=== PATIENT | female | born 1935 ===

== ENCOUNTER → 2019-05-19 | Outpatient (CLI) | payer MEDICARE, OTHER | LOC: ZCOL.LAB 16:05 | DX: L08.0 Pyoderma (principal) ==

== ENCOUNTER 2021-01-24 09:21 | Day surgery (SDC) | payer MEDICARE, OTHER ==
[2021-01-24] VITALS (9 sets, daily range): BP systolic 137–198; BP diastolic 66–898; PULSE 57–71; TEMP 97.7
[~2021-01-24] VITALS: Ht 167.6 cm; Wt 63.8 kg
--- NOTE | 2021-01-24 10:23 | NUR ---
Initial visit; Patient thanked Senior Systems Administrator for offering prayer and encouragement to her.
[2021-01-24 10:38] LABS: HEMOGLOBIN 11.9 g/dl (12.5-16.0); MEAN CELL VOLUME 98 fl (80.0-100.0); MEAN CORPUSCULAR HEMOGLOBIN 32 pg (27.0-31.0); MEAN CORPUSCULAR HGB CONC 32 g/dl (33.0-37.0); MEAN PLATELET VOLUME 10.9 fl (7.4-10.4); PLATELET COUNT 191 K/mm3 (130-400); RED BLOOD COUNT 3.76 M/mm3 (4.10-5.30); REDCELL DISTRIBUTION WIDTH-CV 13.3 % (11.5-14.5)
[2021-01-24 10:40] LABS: HEMATOCRIT 36.8 % (37.0-47.0)
[2021-01-24 10:41] LABS: INR 1.1 (0.8-3.0); PROTHROMBIN TIME 12.5 SECONDS (9.7-12.8)
[2021-01-24 10:44] LABS: PARTIAL THROMBOPLASTIN TIME 31.9 SECONDS (26.0-37.0)
[2021-01-24 10:53] LABS: CALCIUM 9.4 mg/dL (8.4-10.2); CREATININE, serum 0.72 mg/dL (0.57-1.11); POTASSIUM 3.7 mmol/L (3.5-4.5)
[2021-01-24] MEDS ORDERED: TOPROL XL 50MG50 MG PO (12:04)
[2021-01-24] MEDS ORDERED: LOTENSIN20 MG PO (12:04)
[2021-01-24] MEDS ORDERED: ZYLOPRIM 300MG300 MG PO (12:05)
[2021-01-24] MEDS ORDERED: ZOCOR 10MG10 MG PO (12:05)
[2021-01-24] MEDS ORDERED: LASIX 40MG TABL40 MG PO (12:05)
[2021-01-24] MEDS ORDERED: NEURONTIN300 MG/CAP PO (12:06)
[2021-01-24] MEDS ORDERED: REQUIP4 MG PO (12:07)
[2021-01-24] MEDS ORDERED: PLAVIX 75MG TAB75 MG PO (12:07)
[2021-01-24] MEDS ORDERED: NOVOLOG FLEX100 U/ML SQ (12:08)
[2021-01-24] MEDS ORDERED: SYNTHROID0.137 MG PO (12:08)
[2021-01-24] MEDS ORDERED: LEVEMIR FLEX100 U/ML SQ (12:09)
[2021-01-24] MEDS ORDERED: OXYGEN (12:09)
[2021-01-24] MEDS ORDERED: CALCIUM 600MG+D1 TAB PO (12:10)
[2021-01-24] MEDS ORDERED: ASPIRIN E.C. 8181 MG PO (12:10)
[2021-01-24] MEDS ORDERED: LUTEIN20 M1 PO (12:11)
[2021-01-24] MEDS ORDERED: COMPLETE MULTI1 TAB PO (12:11)
--- NOTE | 2021-01-24 12:45 | NUR ---
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 pt is awake and alert, pwd, nsr on monitor. TR band to rt wrist, cms intact distal. Pt informed of poc. lunch ordered. call light in reach.
--- NOTE | 2021-01-24 16:20 | NUR ---
Pt has done well during her recovery. Pt is dressed now sitting at edge of bed. She has been up with walker with steady gait, denies any lightheadedness etc, although does state feels "tired". TR band was deflated with no problem. site dressed with bandaid, folded 2x2 and coban. CMS remains intact distal. I reviewed dc/fu instructions with patient and daughter, both of whom verbalized understanding. IV was dc'd with cath intact, dressing applied. Pt is escorted to exit via wheelchair.
== END 2021-01-24 17:00 | disposition home or self-care (01) ==
LOC: COL.CAR 09:21
PROVIDERS: Internal Medicine Interventional Cardiology
DX: I25.10 Atherosclerotic heart disease of native coronary artery without angina pectoris (principal); R94.39 Abnormal result of other cardiovascular function study; I87.1 Compression of vein; E11.9 Type 2 diabetes mellitus without complications; Z79.82 Long term (current) use of aspirin; Z79.899 Other long term (current) drug therapy; Z79.02 Long term (current) use of antithrombotics/antiplatelets; Z79.4 Long term (current) use of insulin; Z85.830 Personal history of malignant neoplasm of bone
CPT/HCPCS: J1644; J2250; J3010; Q9967